=== PATIENT | female | born 1995 | race Caucasian/White ===

== ENCOUNTER 2019-08-20 19:00 | Inpatient (IN) | payer MEDICAID, SELFPAY ==
[2019-08-20] MEDS: Lactated Ringers 1,000 ML 50 ML IV (19:40)
--- NOTE | 2019-08-20 19:42 | HP.PCM_ITS ---
- Problem List (1) 40 weeks gestation of Status: Acute (2) Primiparous Status: Acute History Date of Admission: 08/20/19 Final JAIR: 08/19/19 Gestational age: 40 Weeks and 1 Days History of this : This is a 24 year-old, G 1, P 0, at 40 weeks gestational age who presents for a scheduled IOL per Dr. Lees for elevated blood pressure reading in the office without a diagnosis of hypertension and a persistent GARCIA. Pt denies vision changes, RUQ pain, epigastric pain, regular ctx, vb, lof. +FM. Medical History: Medical History (Last Updated 08/20/19 @ 19:45 by Dora Carr DO) Diverticulitis K57.92 Smoking Status: Current every day smoker Alcohol: None Number of Fetus(es): 1 NST - FHR Rate Baby A NST Reactive:: Yes FHR Category:: Category I Uterine Activity:: Occasional ctx History Past Pregnancies: Past Pregnancies Delivery Date Name GA/ Weeks Outcome Route Wt Sex Labor Length Anesthesia Delivery Location Provider FOB Labs: GBS neg Hgb 11.3 1 hr GTT 118 Sequential screen neg UDS neg Syphilis neg RI HepB neg HIV NR O positive Antibody screen neg GC/CT neg US: Left kidney with pyelectasis Expected Delivery Method: Spontaneous Vaginal Review of Systems Eyes: Denies: Blurred vision, Vision Change HEENT: Reports: Head Aches Gastrointestinal: Denies: Abdominal Pain, Vomiting Physical Exam General: Alert, No apparent distress HEENT: Atraumatic Abdomen: Soft, Non Tender, Gravid Extremities:: No edema Neurological: Neuro grossly intact 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 Lees. - Admit for routine intrapartum care - Wheatley & Cytotec - Epidural prn - GBS neg - BP normal on admission. Discussed getting pre-e labs if she has elevated BP's. Also discussed possible mag gtt
[2019-08-20] MEDS: 0.9% Normal Saline Single 100 ML IV.SOLN. IY (20:00)
[2019-08-20 20:07] LABS: Absolute Lymphocyte Count 1.54 X10^3/uL (0.83-4.51); Absolute Neutrophil Count 10.5 X10^3/uL (2.0-7.7); Basophil# 0.02 X10^3/uL; Basophil% 0.2 % (0-1); Eosinophil# 0.12 X10^3/uL; Eosinophils% 0.9 % (0-5); Hematocrit 34.5 % (37-47); Hemoglobin 11.1 g/dL (12.0-15.0); Lymphocyte # 1.54 X10^3/ul (4.0); Lymphocyte % 11.9 % (19-41); Mean Corp Hgb Conc 32.2 g/dL (32-36); Mean Corpuscular Hgb 28.7 pg (27.0-32.0); Mean Corpuscular Volume 89.1 fL (81-99); Mean Platelet Vol. 11.5 fl (6.2-12.0); Monocyte# 0.68 X10^3/uL; Monocyte% 5.3 % (0-10); NRBC Flagged by Analyzer 0 % (0-5); Neutrophil # 10.53 X10^3/uL (2.7-7.7); Neutrophil % 81.3 % (47-70); Platelet Count 258 K/mm3 (150-450); RBC Distribution Width CV 14.9 % (11.6-14.6); RBC Distribution Width SD 48.2 fl (35.1-43.9); Red Blood Count 3.87 M/mm3 (4.2-5.4); White Blood Count 12.9 K/mm3 (4.4-11.0)
[2019-08-20 20:14] VITALS: BMI 40.6
[2019-08-20] MEDS: miSOPROStol 25 MCG TABLET PO (20:44)
[2019-08-20] MEDS: Ondansetron 4 MG/2 ML Vial IV (21:21)
[2019-08-20] MEDS: Acetaminophen 325 MG Tablet PO (22:50)
[2019-08-20] MEDS: proCHLORPERazine 10 MG/2 ML Vial IV (23:01)
[2019-08-20] MEDS: Morphine 4 MG/ML Syringe IV (23:45)
--- NOTE | 2019-08-21 01:07 | PCM.PN.BLA ---
Progress Note Called to review FHR. Present to review with RN. Cervical cobb still in place and due for 2nd dose of Cytotec. Category [address] 2nd dose of Cytotec.
[2019-08-21] MEDS: miSOPROStol 25 MCG TABLET PO (01:09)
[2019-08-21] MEDS: Oxytocin 30 units/NS 500 ml 30 UNITS/500 ML IV.SOLN IV (05:06)
--- NOTE | 2019-08-21 07:57 | PCM.PN.BLA ---
Progress Note Cvx 4/60/-3, posterior, head well applied. AROM performed in usual fashion for clear fluid and internal monitors placed. 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
[2019-08-21] MEDS: Ondansetron 4 MG/2 ML Vial IV (08:49)
[2019-08-21] MEDS: proCHLORPERazine 10 MG/2 ML Vial IV ×2 (09:07→15:29)
[2019-08-21] MEDS: Lactated Ringers 500 ML 999 ML IV ×3 (09:36→17:37)
[2019-08-21] MEDS: fentaNYL-bupivacaine (epidural) 100 ML BAG EPIDURAL ×2 (10:41→15:29)
--- NOTE | 2019-08-21 12:29 | PCM.PN.OB ---
Patient Problems: Active and Suspected Problems (Last Updated 08/20/19 @ 19:45 by Dora Carr DO) 40 weeks gestation of (Acute) Primiparous (Acute) Subjective: Doing well per patient and nursing staff. Sleeping and comfortable with epidural on left side. Family at bedside. Objective: FHR 125, moderate variability, accels, no decels, Category 1 Contractions:every 2-3 minutes, Pitocin at [address] Cervix: 5cm/70%/-2, LOT - Physical Exam Vitals/I&O's: Weight: 229 lb 4.492 oz Body Mass Index (BMI) 40.6 Intake and Output for Last 24 Hours 08/19/19 08/20/19 08/21/19 23:59 23:59 23:59 Intake Total 1734.80 / 1734.80 Balance 1734.80 / 1734.80 Laboratory Results 08/20/19 19:40: WBC 12.9 H, RBC 3.87 L, Hgb 11.1 L, Hct 34.5 L, MCV 89.1, MCH 28.7, MCHC 32.2, RDW Std Deviation 48.2 H, RDW Coeff of Kash 14.9 H, Plt Count 258, MPV 11.5, Immature Gran % (Auto) 0.400, Neut % (Auto) 81.3 H, Lymph % (Auto) 11.9 L, Meigs % (Auto) 5.3, Eos % (Auto) 0.9, Baso % (Auto) 0.2, Absolute Neuts (auto) 10.5 H, Absolute Lymphs (auto) 1.54, Nucleated RBC % 0 08/20/19 19:40: Blood Type O POSITIVE, Antibody Screen NEGATIVE Current Medications Acetaminophen (Tylenol) 325 - 650 mg PO Q4H PRN PRN PRN Reason: Pain Score 1-3/10 Last Admin: 08/20/19 22:50 Dose: 650 mg Documented by: Al Hydroxide/Mg Hydroxide (Mylanta Ii) 15 - 30 ml PO Q4H PRN PRN PRN Reason: INDIGESTION Citric Acid/Sodium Citrate (Bicitra) 30 ml PO X1 PRN PRN Reason: Section Ephedrine Sulfate () 10 mg IV Q10M PRN PRN Reason: hypotension Ephedrine Sulfate () 10 mg IM Q30M PRN PRN Reason: hypotension Fentanyl/Bupivacaine/Sodium Chlor () 0 ml EPIDURAL UD SUDARSHAN; Protocol Last Admin: 08/21/19 10:41 Dose: 100 ml Documented by: Lactated Ringer's () 500 mls @ 999 mls/hr IV .Q31M PRN PRN Reason: Epidural Last Infusion: 08/21/19 10:12 Dose: Infused Documented by: Lactated Ringer's () 500 mls @ 999 mls/hr IV .Q31M PRN PRN Reason: Corrective Measures Last Infusion: 08/21/19 10:47 Dose: Infused Documented by: Lactated Ringer's () 1,000 mls @ 50 mls/hr IV .Q20H SUDARSHAN Last Infusion: 08/21/19 10:47 Dose: 200 mls/hr Documented by: Oxytocin/Sodium Chloride () 30 units in 500 mls @ 2 mls/hr IV .Q250H SUDARSHAN Last Infusion: 08/21/19 08:56 Dose: 6 mls/hr Documented by: Naloxone HCl 4 mg/ Dextrose 504 mls @ 0 mls/hr IV .Q0M PRN; Protocol PRN Reason: To maintain Resp. rate >10 Morphine Sulfate () 4 mg IV Q4H PRN PRN PRN Reason: Pain Score 6-10/10 Last Admin: 08/20/19 23:45 Dose: 4 mg Documented by: Nalbuphine HCl (Nubain) 5 - 10 mg SC Q3H PRN PRN PRN Reason: Pain Score 4-10/10 Naloxone HCl (Narcan) 0.02 mg IV Q1M PRN PRN Reason: RR< 10 AND PT UNRESPONSIVE Ondansetron HCl (Zofran) 4 mg IV Q4H PRN PRN PRN Reason: NAUSEA Last Admin: 08/21/19 08:49 Dose: 4 mg Documented by: Prochlorperazine Edisylate (Compazine Iv) 10 mg IV Q6H PRN PRN PRN Reason: NAUSEA Last Admin: 08/21/19 09:07 Dose: 10 mg Documented by: Sodium Chloride () 10 - 40 ml IV X1 PRN PRN Reason: SALINE FLUSH Medical Necessity - Tobacco Use Smoking Status: Never smoker Assessment/Plan All Active Problems (Last Updated 08/20/19 @ 19:45 by Dora Carr DO) 40 weeks gestation of (Acute) Primiparous (Acute) A:Induction of labor Category 1 FHT P: 1) Continue with active management and pitocin 2) Positional changes for position. 3) notified of patient status 4) Epidural for pain management
[2019-08-21] MEDS: Lactated Ringers 1,000 ML 200 ML IV ×2 (13:04→17:37)
--- NOTE | 2019-08-21 18:00 | PCM.PN.OB ---
Patient Problems: Active and Suspected Problems (Last Updated 08/20/19 @ 19:45 by Dora Carr DO) 40 weeks gestation of (Acute) Primiparous (Acute) Subjective: Resting in bed comfortable with epidural. Family at bedside. Objective: FHT 135, moderate variability, accels, 1 variable decel, Category 2 FHT IUPC: Irregular, Pictocin 2 units Cervix: 6cm/80%/-1. Well applied to cervix, AVIVA, small amount of caput - Physical Exam Vitals/I&O's: Weight: 229 lb 4.492 oz Body Mass Index (BMI) 40.6 Intake and Output for Last 24 Hours 08/19/19 08/20/19 08/21/19 23:59 23:59 23:59 Intake Total 3008.63 / 3008.63 Balance 3008.63 / 3008.63 Laboratory Results 08/20/19 19:40: WBC 12.9 H, RBC 3.87 L, Hgb 11.1 L, Hct 34.5 L, MCV 89.1, MCH 28.7, MCHC 32.2, RDW Std Deviation 48.2 H, RDW Coeff of Kash 14.9 H, Plt Count 258, MPV 11.5, Immature Gran % (Auto) 0.400, Neut % (Auto) 81.3 H, Lymph % (Auto) 11.9 L, Mower % (Auto) 5.3, Eos % (Auto) 0.9, Baso % (Auto) 0.2, Absolute Neuts (auto) 10.5 H, Absolute Lymphs (auto) 1.54, Nucleated RBC % 0 08/20/19 19:40: Blood Type O POSITIVE, Antibody Screen NEGATIVE Current Medications Acetaminophen (Tylenol) 325 - 650 mg PO Q4H PRN PRN PRN Reason: Pain Score 1-3/10 Last Admin: 08/20/19 22:50 Dose: 650 mg Documented by: Al Hydroxide/Mg Hydroxide (Mylanta Ii) 15 - 30 ml PO Q4H PRN PRN PRN Reason: INDIGESTION Citric Acid/Sodium Citrate (Bicitra) 30 ml PO X1 PRN PRN Reason: Section Ephedrine Sulfate () 10 mg IV Q10M PRN PRN Reason: hypotension Ephedrine Sulfate () 10 mg IM Q30M PRN PRN Reason: hypotension Fentanyl/Bupivacaine/Sodium Chlor () 0 ml EPIDURAL UD SUDARSHAN; Protocol Last Admin: 08/21/19 15:29 Dose: 100 ml Documented by: Lactated Ringer's () 500 mls @ 999 mls/hr IV .Q31M PRN PRN Reason: Epidural Last Infusion: 08/21/19 10:12 Dose: Infused Documented by: Lactated Ringer's () 500 mls @ 999 mls/hr IV .Q31M PRN PRN Reason: Corrective Measures Last Admin: 08/21/19 17:37 Dose: 999 mls/hr Documented by: Lactated Ringer's () 1,000 mls @ 50 mls/hr IV .Q20H SUDARSHAN Last Infusion: 08/21/19 17:38 Dose: 0 mls/hr Documented by: Oxytocin/Sodium Chloride () 30 units in 500 mls @ 2 mls/hr IV .Q250H SUDARSHAN Last Infusion: 08/21/19 17:27 Dose: 10 mls/hr Documented by: Naloxone HCl 4 mg/ Dextrose 504 mls @ 0 mls/hr IV .Q0M PRN; Protocol PRN Reason: To maintain Resp. rate >10 Morphine Sulfate () 4 mg IV Q4H PRN PRN PRN Reason: Pain Score 6-10/10 Last Admin: 08/20/19 23:45 Dose: 4 mg Documented by: Nalbuphine HCl (Nubain) 5 - 10 mg SC Q3H PRN PRN PRN Reason: Pain Score 4-10/10 Naloxone HCl (Narcan) 0.02 mg IV Q1M PRN PRN Reason: RR< 10 AND PT UNRESPONSIVE Ondansetron HCl (Zofran) 4 mg IV Q4H PRN PRN PRN Reason: NAUSEA Last Admin: 08/21/19 08:49 Dose: 4 mg Documented by: Prochlorperazine Edisylate (Compazine Iv) 10 mg IV Q6H PRN PRN PRN Reason: NAUSEA Last Admin: 08/21/19 15:29 Dose: 10 mg Documented by: Sertraline HCl (Zoloft) 100 mg PO DAILY ON LICENSE OF [facility] Sodium Chloride () 10 - 40 ml IV X1 PRN PRN Reason: SALINE FLUSH Medical Necessity - Tobacco Use Smoking Status: Never smoker Assessment/Plan All Active Problems (Last Updated 08/20/19 @ 19:45 by Dora Carr DO) 40 weeks gestation of (Acute) Primiparous (Acute) A:Induction of Labor, progressing Category 2 FHT P: 1) Epidural for pain management 2) Continue with pitocin induction 3) Replace IUPC due to decreased contraction pattern
[2019-08-21] MEDS: Sertraline 100 MG Tablet PO (20:35)
[2019-08-21] MEDS: Oxytocin 30 units/NS 500 ml 30 UNITS/500 ML IV.SOLN 334 UNITS IV (21:46)
--- NOTE | 2019-08-21 22:36 | PCM.OPRPT ---
Problem List (1) Vaginal delivery Status: Acute (2) Second degree perineal laceration Status: Acute Vaginal Delivery Maternal Presentation: Medically Indicated Induction Method of Induction: Pitocin, Wheatley Bulb, Cytotec Amniotic Membrane Rupture Type: Artificial Amniotic Fluid Description: Clear Date of Procedure: 08/21/19 Pre-Operative Diagnosis: Induction of Labor Post-Operative Diagnosis: Surgery/ Procedure Performed: Spontaneous Vaginal Delivery Type of Anesthesia: Epidural Description of Procedure: Progressed to complete with strong urge to push. of viable male infant over 2nd degree perineal laceration. head delivered and body forth coming. Placed on maternal abdomen, mouth and nares suctioned for secretions, terminal meconium. APGARS 8,9. Pitocin started for active 3rd stage management. Cord clamped and cut after pulsations ceased by FOB. Placenta delivered with maternal effort, intact, 3 vessel cord. Perineum inspected and revealed 2nd degree perineal laceration. Repaired under epidural analgesia and 3.0 vicryl, well approximated and hemostasis achieved. Fundus firm and 3 below U. Mom and baby stable, family bonding well. initiated. notified. Presentation: Vertex Placental Delivery Description: Spontaneous Placenta Disposition: [facility] Cord Vessel Description: 3 Vessels Cord Entanglement: None Estimated Blood Loss: 300ml Infant A gender: Male (1 minute): 8 (5 minute): 9 Episiotomy Description: None Laceration: 2nd degree Medications given after delivery: IV Pitocin Complications: None
[2019-08-22] MEDS: 0.9% Saline Lock 10 ML Syringe IV (00:08)
[2019-08-22] MEDS: Ibuprofen 600 MG Tablet PO ×3 (00:37→14:35)
[2019-08-22 04:50] VITALS: BP 121/77; PULSE 98; RESP 16; TEMP 36.7; O2SAT 98
[2019-08-22] MEDS: Acetaminophen 500 MG Tablet 1000 MG PO ×3 (05:05→23:09)
[2019-08-22 05:07] LABS: Hematocrit 31.9 % (37-47); Hemoglobin 10.4 g/dL (12.0-15.0); Mean Corp Hgb Conc 32.6 g/dL (32-36); Mean Corpuscular Hgb 28.9 pg (27.0-32.0); Mean Corpuscular Volume 88.6 fL (81-99); Mean Platelet Vol. 11.1 fl (6.2-12.0); Platelet Count 224 K/mm3 (150-450); RBC Distribution Width CV 14.9 % (11.6-14.6); RBC Distribution Width SD 48.2 fl (35.1-43.9); White Blood Count 17.3 K/mm3 (4.4-11.0)
--- NOTE | 2019-08-22 07:26 | PCM.PN.OB ---
Patient Problems: Active and Suspected Problems (Last Updated 08/20/19 @ 19:45 by Dora Carr DO) 40 weeks gestation of (Acute) Primiparous (Acute) Vaginal delivery (Acute) Second degree perineal laceration (Acute) Subjective: Doing well per patient and nursing staff. Ambulating and passing flatus. with assistance. Pain controlled. Denies headache, visual changes, chest pain, shortness of breath, increased vaginal bleeding or clots. Planning D/C home tomorrow. - Physical Exam Vitals/I&O's: Vital Signs Temp Pulse Resp BP Pulse Ox 98.1 F 98 16 121/77 H 98 08/22/19 04:50 08/22/19 04:50 08/22/19 04:50 08/22/19 04:50 08/22/19 04:50 Oxygen Delivery Method Room Air Weight: 229 lb 4.492 oz Body Mass Index (BMI) 40.6 Intake and Output for Last 24 Hours 08/20/19 08/21/19 08/22/19 23:59 23:59 23:59 Intake Total 4691.97 / 4691.97 573 / 573 Output Total 300 / 300 600 / 600 Balance 4391.97 / 4391.97 -27 / -27 General: Alert, Oriented x3, Cooperative HEENT: Atraumatic, Normocephalic Neck: Trachea Midline Lungs: Clear to auscultation, Normal air movement, No rhonchi, No wheeze Cardiovascular: Regular rate, Regular Rhythm, No murmurs Abdomen: Bowel Sounds Present, - - Fundus firm 3 below U Extremities: No edema Psych/Mental Status: Normal Affect, Appropriate Comment: Normal lochia rubra, laceration well approximated Laboratory Results 08/22/19 05:00: WBC 17.3 H, RBC 3.60 L, Hgb 10.4 L, Hct 31.9 L, MCV 88.6, MCH 28.9, MCHC 32.6, RDW Std Deviation 48.2 H, RDW Coeff of Kash 14.9 H, Plt Count 224, MPV 11.1 Current Medications Acetaminophen (Tylenol) 1,000 mg PO Q8H PRN PRN PRN Reason: Pain Score 1-10/10 Last Admin: 08/22/19 05:05 Dose: 1,000 mg Documented by: Bisacodyl (Dulcolax) 10 mg RECTAL UD PRN PRN Reason: If no BM Dibucaine (Dibucaine) 1 applic TOPICAL TID PRN PRN; Protocol PRN Reason: Discomfort Hydrocortisone (Hytone) 1 applic TOPICAL TID PRN PRN; Protocol PRN Reason: Discomfort Ibuprofen (Motrin) 600 mg PO Q6H PRN PRN PRN Reason: Pain Score 1-10/10 Last Admin: 08/22/19 00:37 Dose: 600 mg Documented by: Methylergonovine Maleate (Methergine) 0.2 mg IM X1 PRN PRN Reason: Excess bleeding/uterine atony Ondansetron HCl (Zofran) 4 mg IV Q4H PRN PRN PRN Reason: Nausea Senna/Docusate Sodium (Senokot-S, Steph-Colace) 1 - 2 tablet PO DAILY PRN PRN PRN Reason: Constipation Sertraline HCl (Zoloft) 100 mg PO QHS SUDARSHAN Simethicone (Mylicon) 80 mg PO PCHS PRN PRN Reason: Indigestion/Stomach pain Sodium Chloride () 5 - 15 ml IV UD PRN PRN Reason: SALINE FLUSH Last Admin: 08/22/19 00:08 Dose: 10 ml Documented by: Medical Necessity - Tobacco Use Smoking Status: Never smoker Assessment/Plan All Active Problems (Last Updated 08/20/19 @ 19:45 by Dora Carr DO) 40 weeks gestation of (Acute) Primiparous (Acute) Vaginal delivery (Acute) Second degree perineal laceration (Acute) A:PPD #1 P: 1) Routine care 2) Pain management 3) Planning D/C home tomorrow 4) support
[2019-08-22 07:54] VITALS: BP 128/79; PULSE 90; RESP 16; TEMP 36.7; O2SAT 98
[2019-08-22 12:41] VITALS: BP 123/70; PULSE 88; RESP 16; TEMP 36.9; O2SAT 98
--- NOTE | 2019-08-22 13:48 | CASEMGMT ---
Social Work Labor and Delivery Consult received and noted for maternal history of depression, currently treated with Zoloft 100 mg. Medical records reviewed. Spoke with RN caring for mother of baby (MOB) this date. Discussed seeing MOB today and current status. Decision made to see MOB tomorrow, likely in the morning hours. Plan: See MOB tomorrow 08.23.2018 for assessment and provision of resources related to depression. -ANGELO Mcallister, [employer]ER HELPER
[2019-08-22 19:05] VITALS: BP 138/81; PULSE 96; RESP 16; TEMP 36.7; O2SAT 98
[2019-08-22 20:30] VITALS: BP 124/73; PULSE 97; RESP 16; TEMP 36.6; O2SAT 98
[2019-08-22] MEDS: Sertraline 100 MG Tablet PO (22:36)
[2019-08-22 23:10] VITALS: BP 127/80; PULSE 98; RESP 16; TEMP 36.9; O2SAT 99
--- NOTE | 2019-08-23 | NURSING ---
Pump education provided. Unboxed pump and explained setup and use with patient
[2019-08-23 04:42] VITALS: BP 133/76; PULSE 89; RESP 16; TEMP 36.6
[2019-08-23] MEDS: Ibuprofen 600 MG Tablet PO (04:52)
[2019-08-23 07:55] VITALS: BP 125/71; PULSE 81; RESP 16; TEMP 36.7
[2019-08-23] MEDS: Acetaminophen 500 MG Tablet 1000 MG PO (08:15)
--- NOTE | 2019-08-23 08:39 | DCINST_ITS ---
Discharge Diet: No Restrictions Discharge Activity: Return to Normal Activity, May not drive while taking narcotic pain medications., May Shower May resume sexual activity in: 4-6 weeks Additional Activity Instructions:: Nothing in the vagina for 4-6 weeks. You may return to work/school in 6 weeks. Call your doctor if your incision/area has: Continuous Slow Oozing, Sudden Increased Bleeding, Increased Pain/ Swelling, Increased Redness, Foul Smelling Discharge Additional Instructions: If you experience any of the following, contact your healthcare provider. * Bleeding that soaks a pad every hour for 2 hours * Fever 100.4 or higher * Unrelieved incision or abdominal pain * Swelling, redness, discharge or bleeding from your incision or episiotomy site * Your incision begins to separate * Problems urinating (including inability to urinate or burning while urinating). * Visual changes * Severe headache * Flu-like symptoms * Pain or redness in one of both of your breasts * Pain, warmth, tenderness or swelling in your legs, especially the calf area * Frequent nausea and vomiting * Symptoms of depression or anxiety If you experience any of the following, call 911 or go to the nearest Emergency Room. * Chest pain * Problems breathing * Seizure activity * Partial or complete paralysis of a body part, slurred speech, weakness or drooping of the face, or a sudden inability to walk or hold your balance Allergies/Adverse Reactions: Allergies No Known Allergies Allergy (Verified 08/20/19 20:15) Medications to take at Discharge Pnv No.95/Ferrous Fum/Folic AC [ Caplet] 1 ea PO 08/20/19 Sertraline HCl [Zoloft] 100 mg PO 08/20/19 Ibuprofen [Motrin] 600 mg PO Q6H PRN #60 tab 08/23/19 The following prescriptions were given: Ibuprofen [Motrin] 600 mg PO Q6H PRN #60 tab PRN Reason: Pain Transmission Status: Pending to [facility] Please Follow Up With: Lucinda Lees MD - [phone] When: Call to make an appointment in our office in 1-2 and 6 weeks or as needed Primary Care Physician: Care Physician,No Primary [Primary Care Provider] - Test Results: Test results from this visit will be discussed in further detail at your follow- up appointment, if applicable.
--- NOTE | 2019-08-23 08:40 | PCM.PN.OB ---
Patient Problems: Active and Suspected Problems (Last Updated 08/20/19 @ 19:45 by Dora Carr DO) 40 weeks gestation of (Acute) Primiparous (Acute) Vaginal delivery (Acute) Second degree perineal laceration (Acute) Subjective: Pain well controlled. Average lochia. No new complaints. - Physical Exam Vitals/I&O's: Vital Signs Temp Pulse Resp BP Pulse Ox 98.1 F 81 16 125/71 H 99 08/23/19 07:55 08/23/19 07:55 08/23/19 07:55 08/23/19 07:55 08/22/19 23:10 Oxygen Delivery Method Room Air Weight: 104 kg Body Mass Index (BMI) 40.6 Intake and Output for Last 24 Hours 08/21/19 08/22/19 08/23/19 23:59 23:59 23:59 Intake Total 4691.97 / 4691.97 1073 / 1073 Output Total 300 / 300 600 / 600 Balance 4391.97 / 4391.97 473 / 473 General: Alert, Cooperative, No apparent distress Current Medications Acetaminophen (Tylenol) 1,000 mg PO Q8H PRN PRN PRN Reason: Pain Score 1-1010 Last Admin: 08/23/19 08:15 Dose: 1,000 mg Documented by: Bisacodyl (Dulcolax) 10 mg RECTAL UD PRN PRN Reason: If no BM Dibucaine (Dibucaine) 1 applic TOPICAL TID PRN PRN; Protocol PRN Reason: Discomfort Hydrocortisone (Hytone) 1 applic TOPICAL TID PRN PRN; Protocol PRN Reason: Discomfort Ibuprofen (Motrin) 600 mg PO Q6H PRN PRN PRN Reason: Pain Score 1-1010 Last Admin: 08/23/19 04:52 Dose: 600 mg Documented by: Methylergonovine Maleate (Methergine) 0.2 mg IM X1 PRN PRN Reason: Excess bleeding/uterine atony Ondansetron HCl (Zofran) 4 mg IV Q4H PRN PRN PRN Reason: Nausea Senna/Docusate Sodium (Senokot-S, Steph-Colace) 1 - 2 tablet PO DAILY PRN PRN PRN Reason: Constipation Sertraline HCl (Zoloft) 100 mg PO QHS SUDARSHAN Last Admin: 08/22/19 22:36 Dose: 100 mg Documented by: Simethicone (Mylicon) 80 mg PO PCHS PRN PRN Reason: Indigestion/Stomach pain Sodium Chloride () 5 - 15 ml IV UD PRN PRN Reason: SALINE FLUSH Last Admin: 08/22/19 00:08 Dose: 10 ml Documented by: Medical Necessity - Tobacco Use Smoking Status: Never smoker Assessment/Plan All Active Problems (Last Updated 08/20/19 @ 19:45 by Dora Carr DO) 40 weeks gestation of (Acute) Primiparous (Acute) Vaginal delivery (Acute) Second degree perineal laceration (Acute) day #2 status post vaginal delivery. Patient is doing well. Ready for discharge. Working on breast-feeding. is doing well. Discharge home with routine instructions and follow-up.
== END 2019-08-23 12:00 | disposition home or self-care (01) | DRG 560 ==
PROVIDERS: Advanced Practice Midwife; Admitting Provider Obstetrics & Gynecology; Referring Provider Obstetrics & Gynecology; Visit Provider Obstetrics & Gynecology
DX: O75.89 Other specified complications of labor and delivery (principal); R03.0 Elevated blood-pressure reading, without diagnosis of hypertension; O70.1 Second degree perineal laceration during delivery; O77.0 Labor and delivery complicated by meconium in amniotic fluid; O99.334 Smoking (tobacco) complicating childbirth; F17.200 Nicotine dependence, unspecified, uncomplicated; Z3A.40 40 weeks gestation of pregnancy; Z37.0 Single live birth
CPT/HCPCS: 59025; 59050; 85025; 85027; 86850; 86900; 86901; 99218; J7120; A4216; G0378; J2405